=== PATIENT | female | born 1975 | race Caucasian/White ===

== ENCOUNTER 2021-09-24 12:16 | Emergency (ER) | payer BC, MEDICAID ==
[~2021-09-24] VITALS: Ht 170.2 cm; Wt 81.8 kg
[~2021-09-24 12:16] MED LIST: ASPI-1265 PO; CITA20TA28 PO; DIPH25CA83 PO; FAMO40TA7 PO; FERGLU300T PO; FEXO180T94 PO; MONT10TA21 PO; PANT40SU2 PO; SUCR1TAB PO; TOP100T PO; WEL75T PO
[2021-09-24 12:26] VITALS: BP 122/87
== END 2021-09-24 14:53 | disposition home or self-care (01) ==
LOC: ER 12:17
DX: S62.631A Displaced fracture of distal phalanx of left index finger, initial encounter for closed fracture (principal); F41.9 Anxiety disorder, unspecified; F32.A Depression, unspecified; Z86.73 Personal history of transient ischemic attack (TIA), and cerebral infarction without residual deficits; Z90.49 Acquired absence of other specified parts of digestive tract; Z98.51 Tubal ligation status; Z98.890 Other specified postprocedural states; Z88.0 Allergy status to penicillin; Z88.5 Allergy status to narcotic agent; Z88.6 Allergy status to analgesic agent; Z88.8 Allergy status to other drugs, medicaments and biological substances; Z79.82 Long term (current) use of aspirin; Z79.899 Other long term (current) drug therapy; X58.XXXA Exposure to other specified factors, initial encounter; Y93.89 Activity, other specified; Y92.89 Other specified places as the place of occurrence of the external cause; Y99.8 Other external cause status
CPT/HCPCS: 29130; 73140; 99283